=== PATIENT | female | born 1995 | race American Indian/Alaskan Native ===

== ENCOUNTER 2017-10-04 12:41 | Emergency (ER) | payer SELFPAY ==
[2017-10-04 12:50] VITALS: BP 128/87
--- NOTE | 2017-10-04 15:19 | Emergency Department Report ---
[facility] Chief Complaint: Eye Problems Stated Complaint: EYE PROBLEMS Time Seen by Provider: 10/04/17 15:06 Duration: 3 Days Side: Left Severity: moderate, severe Symptoms: Yes Eye Itching, Yes Eye Redness, Yes Eye Pain, Yes Mucous Drainage, No Purulent Drainage, No Blurred Vision, No Preceding URI, No H/O Allergic Rhinitis, No Contact Lens Use, No Trauma, No Fever Other History: Patient states that 3 days ago she had some makeup done and felt some itching to the left eye. This is progressively worsening and to the point that now she is has upper and lower eyelid swelling 7 difficult time opening her eye this morning and her eye was very red and inflamed. ED Review of Systems ROS: Stated complaint: EYE PROBLEMS Other details as noted in HPI Comment: All other systems reviewed and negative ED Past Medical Hx - Past Medical History Previous Medical History?: No - Surgical History Additional Surgical History: cardia ablation - Social History Smoking Status: Current Every Day Smoker Substance Use Type: None, Marijuana - Medications Home Medications: Home Medications Medication Instructions Recorded Confirmed Last Taken Type Clindamycin [Clindamycin CAP] 150 mg PO Q6HR 7 Days capsule 10/04/17 Unknown Rx Gentamicin 0.3% Ophth Soln 2 drops OS Q4H #1 bottle 10/04/17 Unknown Rx Ibuprofen [Motrin] 600 mg PO Q8H PRN #20 tablet 10/04/17 Unknown Rx [facility] Exam - Exam General: Vital signs noted. No distress. Alert and acting appropriately. Eye Exam: Left Injection, Left Chemosis, Left Mucous Discharge (patient has left -sided upper and lower eyelid swelling with edema), Neither Abnormal Pupil, Neither EOMI, Neither Eye Foreign Body, Neither Lid Foreign Body, Neither Purulent Discharge, Neither Fluorescein Uptake, Neither Fluorescein Uptake ( slit lamp), Neither Cell/Flare (slit lamp), Neither Corneal Edema, Neither Photophobia HEENT: No Nasal Congestion, No Pharyngeal Erythema Remainder of HEENT: Normal Lungs: Yes Clear Lung Sounds, Yes Good Air Exchange, No Wheezes, No Stridor, No Cough, No Nasal Flaring, No Retractions, No Use of Accessory Muscles ED Course Vital Signs 10/04/17 12:45 Temperature 98.4 F Pulse Rate 83 Respiratory 15 Rate Blood Pressure 128/87 O2 Sat by Pulse 98 Oximetry ED Medical Decision Making - Medical Decision Making Patient will be treated for conjunctivitis with periorbital cellulitis pressure and intact Critical care attestation.: If time is entered above; I have spent that time in minutes in the direct care of this critically ill patient, excluding procedure time. ED Disposition Clinical Impression: Periorbital cellulitis of left eye Acute bacterial conjunctivitis Qualifiers: Laterality: left Qualified Code(s): H10.32 - Unspecified acute conjunctivitis, left eye Disposition: TO HOME OR SELFCARE Is pt being admited?: No Does the pt Need Aspirin: No Condition: Stable Instructions: Conjunctivitis (ED), Periorbital Cellulitis in Children (ED) Prescriptions: Clindamycin [Clindamycin CAP] 150 mg PO Q6HR 7 Days capsule Gentamicin 0.3% Ophth Soln 2 drops OS Q4H #1 bottle Referrals: PRIMARY CARE, [Primary Care Provider] - 3-5 Days
== END 2017-10-04 16:55 | disposition home or self-care (01) ==
LOC: ED 12:41
DX: H10.32 Unspecified acute conjunctivitis, left eye (principal); L03.213 Periorbital cellulitis; F17.200 Nicotine dependence, unspecified, uncomplicated; F12.10 Cannabis abuse, uncomplicated
CPT/HCPCS: 99282